=== PATIENT | male | born 1950 | race Caucasian/White ===

== ENCOUNTER 2018-05-02 09:25 | Outpatient (CLI) ==
[2015-11-15 13:57] VITALS: BMI 23.8
--- NOTE | 2018-05-02 11:09 | US ---
EXAM: Digital diagnostic mammogram with tomosynthesis. Left breast ultrasound HISTORY: Pain/lump left breast COMPARISON: None FINDINGS: Mammogram . Digital MLO and CC views of the right and left breast were performed. Tomosynthesis was performed. Computer aided detection utilized. There is bilateral gynecomastia, left greater than right. There is no evidence for mass, asymmetry, distortion, or suspicious calcifications in either breast. Ultrasound: Ultrasound left breast was performed in the retroareolar region in the area of clinical concern. The re is breast tissue, consistent with gynecomastia. No mass or cyst identified. IMPRESSION: 1. No evidence of malignancy in the right or left breast. 2. Bilateral gynecomastia, left greater than right. Recommend clinical follow-up. BIRADS category 2, benign
== END 2018-05-02 09:26 | disposition home or self-care (01) ==
LOC: RAD 09:25
DX: N60.22 Fibroadenosis of left breast (principal)